=== PATIENT | male | born 1960 | race African-American/Black ===

== ENCOUNTER 2016-10-25 11:45 | Emergency (ER) | payer SELFPAY ==
[~2016-10-25] VITALS: Ht 170.2 cm; Wt 63.0 kg
[2016-10-25 11:47] VITALS: BP 131/78
[2016-10-25] MEDS ORDERED: HYDROcodone/APAP 5/325 TABLET ONE (12:19)
[2016-10-25] MEDS ORDERED: HYDROcodone/APAP 5/325 TABLET PO ONE (12:30)
== END 2016-10-25 12:45 | disposition home or self-care (01) ==
LOC: ED 12:40
DX: K02.9 Dental caries, unspecified (principal)
CPT/HCPCS: 99283

== ENCOUNTER 2016-10-26 21:41 | Emergency (ER) | payer SELFPAY | END 2016-10-26 22:41 | LOC: ED 21:41 | DX: R05 Cough (principal); R06.02 Shortness of breath ==

== ENCOUNTER 2017-10-19 17:27 | Emergency (ER) | payer MEDICAID ==
[~2017-10-19] VITALS: Ht 170.2 cm; Wt 61.0 kg
[2017-10-19 18:13] VITALS: BP 124/74
[2017-10-19] MEDS ORDERED: KETOROLAC 30 MG/1 ML ONE (18:48)
[2017-10-19] MEDS ORDERED: KETOROLAC 60 MG/2 ML IM ONE (19:00)
== END 2017-10-19 19:11 | disposition home or self-care (01) ==
LOC: ED 19:00
DX: M19.012 Primary osteoarthritis, left shoulder (principal)
CPT/HCPCS: 73030; 96372; 99284; J1885

== ENCOUNTER 2018-07-23 10:52 | Emergency (ER) | payer MEDICAID ==
[~2018-07-23] VITALS: Ht 170.2 cm; Wt 64.0 kg
[2018-07-23 11:06] VITALS: BP 140/88
[2018-07-23] MEDS ORDERED: KETOROLAC 30 MG/1 ML IM ONE (12:00)
[2018-07-23] MEDS ORDERED: KETOROLAC 30 MG/1 ML ONE (12:00)
== END 2018-07-23 12:19 | disposition home or self-care (01) ==
LOC: ED 12:05
DX: M25.511 Pain in right shoulder (principal); M19.90 Unspecified osteoarthritis, unspecified site
CPT/HCPCS: 73030; 96372; 99283; J1885

== ENCOUNTER 2019-06-01 16:24 | Emergency (ER) | payer MEDICAID ==
[~2019-06-01] VITALS: Ht 170.2 cm; Wt 72.0 kg
[2019-06-01 16:38] VITALS: BP 160/77
[2019-06-01] MEDS ORDERED: LIDOCAINE-MPF 1%, 5ML ONE (17:20)
[2019-06-01] MEDS ORDERED: DIPH,PERTUSS(ACELL),TET VAC/PF 0.5 ML IM-VACC ONE ×2 (17:20→17:30)
[2019-06-01] MEDS ORDERED: LIDOCAINE 1%, 10ML INFIL ONE (17:30)
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
[2019-06-01] MEDS ORDERED: NEOSPORIN OINT. PKT 1 PACKET ONE ×2 (19:22→19:27)
== END 2019-06-01 19:35 | disposition home or self-care (01) ==
LOC: ED 19:15
DX: S01.01XA Laceration without foreign body of scalp, initial encounter (principal); S01.412A Laceration without foreign body of left cheek and temporomandibular area, initial encounter; Y04.8XXA Assault by other bodily force, initial encounter; Y93.89 Activity, other specified; Y92.410 Unspecified street and highway as the place of occurrence of the external cause; Y99.8 Other external cause status
CPT/HCPCS: 12001; 12011; 70450; 70486; 90471; 90715

== ENCOUNTER 2019-06-08 10:42 | Emergency (ER) | payer MEDICAID ==
[~2019-06-08] VITALS: Ht 170.2 cm; Wt 69.4 kg
[2019-06-08 11:07] VITALS: BP 106/76
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
[2019-06-08] MEDS ORDERED: NEOSPORIN OINT. PKT 1 PACKET ONE (12:38)
== END 2019-06-08 13:17 | disposition home or self-care (01) ==
LOC: ED 13:11
DX: S05.42XD Penetrating wound of orbit with or without foreign body, left eye, subsequent encounter (principal); X58.XXXD Exposure to other specified factors, subsequent encounter
CPT/HCPCS: 99281

== ENCOUNTER 2020-03-27 11:33 | Emergency (ER) | payer MEDICAID ==
[~2020-03-27] VITALS: Ht 170.2 cm; Wt 67.0 kg
[2020-03-27 11:38] VITALS: BP 120/81
== END 2020-03-27 12:25 | disposition home or self-care (01) ==
LOC: ED 12:19
DX: L20.84 Intrinsic (allergic) eczema (principal); M19.90 Unspecified osteoarthritis, unspecified site; R21 Rash and other nonspecific skin eruption
CPT/HCPCS: 99283

== ENCOUNTER 2020-11-04 15:33 | Emergency (ER) | payer MEDICAID ==
[~2020-11-04] VITALS: Ht 170.2 cm; Wt 64.0 kg
[2020-11-04 15:47] VITALS: BP 129/90
== END 2020-11-04 16:02 | disposition home or self-care (01) ==
LOC: ED 15:55
DX: B86 Scabies (principal); M19.90 Unspecified osteoarthritis, unspecified site
CPT/HCPCS: 99283